=== PATIENT | male | born 2000 | race Caucasian/White ===

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

== ENCOUNTER 2023-01-29 14:01 | Emergency (ER) | payer MEDICAID ==
[~2023-01-29] VITALS: Ht 152.4 cm; Wt 54.4 kg
--- NOTE | 2023-01-29 14:25 | ED General ---
General Chief Complaint: Allergic Reaction Stated Complaint: ALLERGIC REACTION | SHELLFISH | 3 HRS AGO Source of Information: Patient, Family Exam Limitations: No Limitations History of Present Illness Date Seen by Provider: Jan 29, 2023 Time Seen by Provider: 14:12 Initial Comments 22-year-old male presents to the ER with parents for allergic reaction. He states that around 11 AM he ate shrimp flavored Ramen. Patient has a known allergy to seafood. He reports that he started having tongue swelling and a puffy face. Took 2 Benadryl around 11:30 or noon. Patient's parents report th at patient's face is quite swollen. States that he sounds like he is talking with a fat tongue. He denies any itching, shortness of air, throat tightness. Allergies and Home Medications Allergies Uncoded Allergies: SEAFOOD (Allergy, Unknown, 01/23/21) Patient Home Medication List Home Medication List Reviewed: Yes Cetirizine HCl (Zyrtec) 10 Mg Capsule, 10 MG PO DAILY Prescribed by: Cece Melendez on 01/29/23 1641 Epinephrine (Epipen 2-Rupert) 0.3 Mg/0.3 Ml Auto.injct, 0.3 MG IJ ONCE Prescribed by: Cece Melendez on 01/29/23 1641 Review of Systems Review of Systems Constitutional: see HPI Past Zsqislr-Sskzoe-Gihniw Hx Patient Social History Tobacco Use?: No Use of E-Cig and/or Vaping dev: No Substance use?: No Alcohol Use?: No Pt feels they are or have been: No Past Medical History Surgery/Hospitalization HX: ADHD, CRISTIANO-SILVER SYNDROME Physical Exam Vital Signs Vital Signs - First Documented 01/29/23 14:05 Temp 37.0 Pulse 101 Resp 18 B/P (MAP) 124/83 (97) Pulse Ox 98 O2 Delivery Room Air Capillary Refill : Height, Weight, BMI Height: '" Weight: lbs. oz. kg; 26.00 BMI Method: General Appearance: No Apparent Distress, WD/WN HEENT: Pharynx Normal, Other (Facial swelling, voice sounds like his tongue is fat, but tongue does not appear swollen) Neck: Non Tender, Supple Respiratory: Lungs Clear, Normal Breath Sounds, No Accessory Muscle Use, No Respiratory Distress Cardiovascular: Regular Rate, Rhythm Extremity: Normal Inspection, Normal Range of Motion Neurologic/Psychiatric: Alert, Normal Mood/Affect Skin: Normal Color, Warm/Dry Progress/Results/Core Measures Suspected Sepsis SIRS Temperature: Pulse: Respiratory Rate: Blood Pressure / Mean: Results/Orders My Orders Orders - CECE TADEO APRN Diphenhydramine Injection (Diphenhydram (01/29/23 14:30) Famotidine Injection (Famotidine Injec (01/29/23 14:30) Dexamethasone Injection (Decadron Injec (01/29/23 14:30) Epinephrine Adult Auto-Inject (Epinephri (01/29/23 14:30) Medications Given in ED Current Medications Medications Dose Ordered Sig/Sylvia Route Start Time Stop Time Status Last Admin Dose Admin Dexamethasone Sodium Phosphate 8 mg ONCE ONCE IV 01/29/23 14:30 01/29/23 14:31 DC 01/29/23 14:30 8 MG Diphenhydramine HCl 50 mg ONCE ONCE IVP 01/29/23 14:30 01/29/23 14:31 DC 01/29/23 14:30 50 MG Epinephrine 0.3 mg ONCE ONCE IM 01/29/23 14:30 01/29/23 14:31 DC 01/29/23 14:30 0.3 MG Famotidine 20 mg ONCE ONCE IVP 01/29/23 14:30 01/29/23 14:31 DC 01/29/23 14:30 20 MG Vital Signs/I&O 01/29/23 01/29/23 01/29/23 14:05 14:05 16:45 Temp 37.0 Pulse 101 83 Resp 18 16 B/P (MAP) 124/83 (97) 117/85 Pulse Ox 98 98 O2 Delivery Room Air Room Air Room Air Capillary Refill : Progress Note : Progress Note Patient seen and evaluated, resting comfortably in bed, no acute distress. Based on exam and symptoms, will treat allergic reaction with Benadryl, Decadron, Pepcid, epi. 1530 patient has had improvement in the swelling of face. He is sleeping comfortably at this time. 1637 swelling of face has continued to improve. Patient is in no acute distress. Will go ahead and discharge at this time. Will discharge with prescription for Zyrtec and EpiPen's. Patient instructed to get Pepcid [id number]. Discharge instructions and return precautions provided. Departure Impression Primary Impression: Allergic reaction Disposition: HOME, SELF-CARE Condition: Stable Departure-Patient Inst. Decision time for Depature: 16:37 Referrals: SAUD UGALDE MD (PCP/Family) Primary Care Physician Patient Instructions: Allergic Reaction ED Add. Discharge Instructions: Take Zyrtec daily for the next 7 days. Get Pepcid [id number] and take 20 mg once a day for the next 7 days. Use your EpiPen if you have another allergic reaction. Return for any new, concerning, or worsening symptoms. All discharge instructions reviewed with patient and/or family. Voiced u nderstanding. Scripts Cetirizine HCl (Zyrtec) 10 Mg Capsule 10 MG PO DAILY for 7 Days, #7 CAP 0 Refills Prov: CECE TADEO APRN 01/29/23 Epinephrine (Epipen 2-Rupert) 0.3 Mg/0.3 Ml Auto.injct 0.3 MG IJ ONCE, #2 EA 0 Refills Prov: CECE TADEO APRN 01/29/23 CECE TADEO APRN Jan 29, 2023 14:25
[2023-01-29] MEDS: dexAMETHasone INJ 4 MG/ML SDV IV ONE (14:30)
[2023-01-29] MEDS: FAMOTIDINE INJ 20MG/2ML VIAL IVP ONE (14:30)
[2023-01-29] MEDS: EPINEPHrine (ADULT) 0.3 MG/0.3 ML auto-inject IM ONE (14:30)
[2023-01-29] MEDS: diphenhydrAMINE INJ 50 MG/ML VIAL IVP ONE (14:30)
[2023-01-29] MEDS ORDERED: EPIN0.3P3 IJ (16:41)
[2023-01-29] MEDS ORDERED: CETI10CA PO (16:41)
[2023-01-29 16:45] VITALS: BP 117/85
== END 2023-01-29 16:45 | disposition home or self-care (01) ==
LOC: EDUNIT# 14:01 → ER 14:03
DX: T78.1XXA Other adverse food reactions, not elsewhere classified, initial encounter (principal); R22.0 Localized swelling, mass and lump, head